=== PATIENT | female | born 1955 | race Native Hawaiian/Other Pacific Islander ===

== ENCOUNTER 2019-01-16 10:24 | Outpatient (CLI) | payer OTHER | END 2019-01-16 22:29 | disposition home or self-care (01) | LOC: MAMMO 10:24 | DX: Z12.31 Encounter for screening mammogram for malignant neoplasm of breast (principal); M89.9 Disorder of bone, unspecified ==

== ENCOUNTER 2019-04-04 14:52 | Outpatient (CLI) | payer OTHER | END 2019-04-04 22:36 | disposition home or self-care (01) | LOC: CT 14:52 | DX: Z87.891 Personal history of nicotine dependence (principal) | CPT/HCPCS: G0297-TC ==

== ENCOUNTER 2019-09-11 11:00 | Inpatient (IN) | payer OTHER | END 2019-09-29 10:14 | disposition still patient (30) | LOC: PAVC 11:00 | PROVIDERS: ADMIT Internal Medicine | CPT/HCPCS: 87635; U0002 ==

== ENCOUNTER 2019-09-12 10:37 | Outpatient (CLI) | payer OTHER ==
[2019-09-12 11:04] LABS: PLATELET COUNT 226 K/uL (152-353)
[2019-09-12 13:31] LABS: POTASSIUM 4.1 mmol/L (3.6-5.2)
== END 2019-09-12 20:25 | disposition home or self-care (01) ==
LOC: LAB 10:37
PROVIDERS: Internal Medicine
DX: G30.0 Alzheimer's disease with early onset (principal)
CPT/HCPCS: 80053; 80061; 82306; 82607; 82728; 83036; 83540; 83880; 84443; 85027

== ENCOUNTER 2019-09-13 01:11 | Outpatient (CLI) | payer OTHER | END 2019-09-13 22:49 | disposition home or self-care (01) | LOC: LAB 01:11 | DX: Z13.9 Encounter for screening, unspecified (principal) | CPT/HCPCS: 87081 ==

== ENCOUNTER 2019-09-29 10:31 | Inpatient (IN) | payer OTHER | END 2019-10-30 14:03 | disposition still patient (30) | LOC: PAVC 10:31 | PROVIDERS: ADMIT Internal Medicine | CPT/HCPCS: 87635; U0002 ==

== ENCOUNTER 2019-10-30 14:43 | Inpatient (IN) | payer OTHER | END 2019-11-29 14:09 | disposition still patient (30) | LOC: PAVC 14:43 | PROVIDERS: ADMIT Internal Medicine ==

== ENCOUNTER 2019-11-29 15:07 | Inpatient (IN) | payer OTHER | END 2019-12-30 08:00 | disposition still patient (30) | LOC: PAVC 15:07 | PROVIDERS: ADMIT Internal Medicine ==

== ENCOUNTER 2019-12-30 09:00 | Inpatient (IN) | payer OTHER | END 2020-01-29 12:25 | disposition still patient (30) | LOC: PAVC 09:00 | PROVIDERS: ADMIT Internal Medicine; ATTEND Internal Medicine ==

== ENCOUNTER 2020-01-29 12:44 | Inpatient (IN) | payer OTHER | END 2020-02-29 09:47 | disposition still patient (30) | LOC: PAVC 12:44 | PROVIDERS: ADMIT Internal Medicine; ATTEND Internal Medicine ==

== ENCOUNTER 2020-02-15 10:06 | Outpatient (CLI) | payer OTHER | END 2020-02-15 19:20 | disposition home or self-care (01) | LOC: RAD 10:06 | PROVIDERS: ATTEND Internal Medicine | DX: M85.88 Other specified disorders of bone density and structure, other site (principal) ==

== ENCOUNTER 2020-02-29 10:04 | Inpatient (IN) | payer OTHER | END 2020-03-31 15:31 | disposition still patient (30) | LOC: PAVC 10:04 | PROVIDERS: ADMIT Internal Medicine; ATTEND Internal Medicine ==

== ENCOUNTER 2020-03-03 09:33 | Outpatient (CLI) | payer OTHER ==
[2020-03-03 09:56] LABS: PLATELET COUNT 201 K/uL (152-353)
[2020-03-03 11:45] LABS: POTASSIUM 3.9 mmol/L (3.6-5.2)
== END 2020-03-03 21:07 | disposition home or self-care (01) ==
LOC: LAB 09:33
PROVIDERS: ATTEND Internal Medicine
DX: G30.0 Alzheimer's disease with early onset (principal); N18.30 Chronic kidney disease, stage 3 unspecified; E55.9 Vitamin D deficiency, unspecified; R06.02 Shortness of breath; I12.9 Hypertensive chronic kidney disease with stage 1 through stage 4 chronic kidney disease, or unspecified chronic kidney disease
CPT/HCPCS: 80053; 82306; 82728; 83540; 83880; 84443; 85027

== ENCOUNTER 2020-03-31 15:42 | Inpatient (IN) | payer OTHER | END 2020-04-28 11:16 | disposition still patient (30) | LOC: PAVC 15:42 | PROVIDERS: ADMIT Internal Medicine; ATTEND Internal Medicine ==

== ENCOUNTER 2020-04-28 11:41 | Inpatient (IN) | payer OTHER | END 2020-05-29 12:22 | disposition still patient (30) | LOC: PAVC 11:41 | PROVIDERS: ADMIT Internal Medicine; ATTEND Internal Medicine ==

== ENCOUNTER 2020-05-29 13:52 | Inpatient (IN) | payer OTHER | END 2020-06-28 11:26 | disposition still patient (30) | LOC: PAVC 13:52 | PROVIDERS: ADMIT Internal Medicine; ATTEND Internal Medicine ==

== ENCOUNTER 2020-06-28 11:46 | Inpatient (IN) | payer OTHER | END 2020-07-29 15:45 | disposition still patient (30) | LOC: PAVC 11:46 | PROVIDERS: ADMIT Internal Medicine; ATTEND Internal Medicine ==

== ENCOUNTER 2020-07-29 16:37 | Inpatient (IN) | payer OTHER | END 2020-08-28 08:00 | disposition still patient (30) | LOC: PAVC 16:37 | PROVIDERS: ADMIT Internal Medicine; ATTEND Internal Medicine ==

== ENCOUNTER 2020-08-28 09:00 | Inpatient (IN) | payer OTHER | END 2020-09-28 08:00 | disposition still patient (30) | LOC: PAVC 09:00 | PROVIDERS: ADMIT Internal Medicine; ATTEND Internal Medicine ==

== ENCOUNTER 2020-09-02 07:49 | Outpatient (CLI) | payer OTHER ==
[2020-09-02 08:40] LABS: POTASSIUM 4.3 mmol/L (3.6-5.2)
[2020-09-02 12:27] LABS: PLATELET COUNT 245 K/uL (152-353)
== END 2020-09-02 19:08 | disposition home or self-care (01) ==
LOC: LAB 07:49
PROVIDERS: ATTEND Internal Medicine
DX: G30.0 Alzheimer's disease with early onset (principal); Z79.899 Other long term (current) drug therapy
CPT/HCPCS: 80053; 80061; 82306; 82728; 83540; 83880; 84443; 85027

== ENCOUNTER 2020-09-28 09:00 | Inpatient (IN) | payer OTHER | END 2020-10-29 13:51 | disposition still patient (30) | LOC: PAVC 09:00 | PROVIDERS: ADMIT Internal Medicine; ATTEND Internal Medicine ==

== ENCOUNTER 2020-10-29 14:22 | Inpatient (IN) | payer OTHER | END 2020-11-28 09:39 | disposition still patient (30) | LOC: PAVC 14:22 | PROVIDERS: ADMIT Internal Medicine; ATTEND Internal Medicine ==

== ENCOUNTER 2021-01-16 13:44 | Outpatient (CLI) | payer OTHER | END 2021-01-16 20:18 | disposition home or self-care (01) | LOC: US 13:44 | PROVIDERS: ATTEND Internal Medicine | DX: Z13.6 Encounter for screening for cardiovascular disorders (principal); E78.49 Other hyperlipidemia; I65.29 Occlusion and stenosis of unspecified carotid artery ==

== ENCOUNTER 2021-01-28 12:48 | Inpatient (IN) | payer OTHER | END 2021-02-28 09:09 | disposition still patient (30) | LOC: PAVC 12:48 | PROVIDERS: ADMIT Internal Medicine; ATTEND Internal Medicine ==

== ENCOUNTER 2021-02-28 09:35 | Inpatient (IN) | payer OTHER | END 2021-03-31 08:59 | disposition still patient (30) | LOC: PAVC 09:35 | PROVIDERS: ADMIT Internal Medicine; ATTEND Internal Medicine ==

== ENCOUNTER 2021-03-02 08:30 | Outpatient (CLI) | payer OTHER ==
[2021-03-02 08:55] LABS: PLATELET COUNT 216 K/uL (152-353)
[2021-03-02 09:26] LABS: POTASSIUM 3.8 mmol/L (3.6-5.2)
== END 2021-03-02 18:49 | disposition home or self-care (01) ==
LOC: LAB 08:30
PROVIDERS: ATTEND Internal Medicine
DX: G30.0 Alzheimer's disease with early onset (principal)
CPT/HCPCS: 80053; 82306; 82728; 83540; 83880; 84443; 85027

== ENCOUNTER 2021-03-31 13:25 | Inpatient (IN) | payer OTHER | END 2021-04-28 09:10 | disposition still patient (30) | LOC: PAVC 13:25 | PROVIDERS: ADMIT Internal Medicine; ATTEND Internal Medicine ==

== ENCOUNTER 2021-04-28 14:18 | Inpatient (IN) | payer OTHER | END 2021-05-29 14:14 | disposition still patient (30) | LOC: PAVC 14:18 | PROVIDERS: ADMIT Internal Medicine; ATTEND Internal Medicine ==

== ENCOUNTER 2021-05-29 15:32 | Inpatient (IN) | payer OTHER | END 2021-06-28 10:41 | disposition still patient (30) | LOC: PAVC 15:32 | PROVIDERS: ADMIT Internal Medicine; ATTEND Internal Medicine ==

== ENCOUNTER 2021-06-28 02:46 | Inpatient (IN) | payer OTHER | END 2021-07-29 10:02 | disposition still patient (30) | LOC: PAVC 02:46 | PROVIDERS: ADMIT Internal Medicine; ATTEND Internal Medicine ==

== ENCOUNTER 2021-07-29 16:19 | Inpatient (IN) | payer OTHER | END 2021-08-28 09:17 | disposition still patient (30) | LOC: PAVC 16:19 | PROVIDERS: ADMIT Internal Medicine; ATTEND Internal Medicine ==

== ENCOUNTER 2021-08-28 06:58 | Outpatient (CLI) | payer OTHER ==
[2021-08-28 08:03] LABS: PLATELET COUNT 237 K/uL (152-353)
== END 2021-08-28 21:13 | disposition home or self-care (01) ==
LOC: LAB 06:58
PROVIDERS: ATTEND Internal Medicine
DX: G30.0 Alzheimer's disease with early onset (principal); Z79.899 Other long term (current) drug therapy; R79.89 Other specified abnormal findings of blood chemistry
CPT/HCPCS: 80053; 80061; 82306; 82728; 83540; 83880; 84443; 85027

== ENCOUNTER 2021-08-28 13:16 | Inpatient (IN) | payer OTHER ==
[2021-09-29] MEDS ORDERED: DONEPEZIL HYDRO10 MG PO (20:50)
[2021-09-29] MEDS ORDERED: ALEN70TA19 PO (20:51)
[2021-09-29] MEDS ORDERED: LIPITOR40 MG PO (20:52)
[2021-09-29] MEDS ORDERED: MAGIC CUP PO (20:54)
[2021-09-29] MEDS ORDERED: MULTIVITAMI1 PO (20:55)
[2021-09-29] MEDS ORDERED: FAMOTIDINE20 MG PO (20:56)
[2021-09-29] MEDS ORDERED: OLANZAPINE10 MG PO (20:57)
[2021-09-29] MEDS ORDERED: ASPIRIN/ENTERIC81 MG PO (20:58)
[2021-09-29] MEDS ORDERED: MEGESTROL400 MG/10 PO (21:00)
[2021-09-29] MEDS ORDERED: METO-837 PO (21:01)
[2021-09-29] MEDS ORDERED: MEMANTINE HYDRO10 MG PO (21:02)
[2021-09-29] MEDS ORDERED: TYLENOL325 MG PO (21:03)
[2021-09-29] MEDS ORDERED: ALPR0.5T24 PO (21:05)
== END 2021-09-28 09:12 | disposition still patient (30) ==
LOC: PAVC 13:16
PROVIDERS: ADMIT Internal Medicine; ATTEND Internal Medicine

== ENCOUNTER 2021-09-11 05:26 | Outpatient (CLI) | payer OTHER | END 2021-09-11 20:49 | disposition home or self-care (01) | LOC: LAB 05:26 | PROVIDERS: ATTEND Internal Medicine | DX: N18.30 Chronic kidney disease, stage 3 unspecified (principal) | CPT/HCPCS: 82607 ==

== ENCOUNTER 2021-09-29 12:52 | Emergency (ER) | payer OTHER ==
[~2021-09-29] VITALS: Ht 165.1 cm; Wt 63.5 kg
[2021-09-29 12:55] VITALS: BP 155/68; TEMP 98.6
[2021-09-29 13:17] LABS: PLATELET COUNT 287 K/uL (152-353)
[2021-09-29 13:27] LABS: POTASSIUM 3.4 mmol/L (3.6-5.2)
[2021-09-29] MEDS ORDERED: DONEPEZIL HYDRO10 MG PO (20:50)
[2021-09-29] MEDS ORDERED: ALEN70TA19 PO (20:51)
[2021-09-29] MEDS ORDERED: LIPITOR40 MG PO (20:52)
[2021-09-29] MEDS ORDERED: MAGIC CUP PO (20:54)
[2021-09-29] MEDS ORDERED: MULTIVITAMI1 PO (20:55)
[2021-09-29] MEDS ORDERED: FAMOTIDINE20 MG PO (20:56)
[2021-09-29] MEDS ORDERED: OLANZAPINE10 MG PO (20:57)
[2021-09-29] MEDS ORDERED: ASPIRIN/ENTERIC81 MG PO (20:58)
[2021-09-29] MEDS ORDERED: MEGESTROL400 MG/10 PO (21:00)
[2021-09-29] MEDS ORDERED: METO-837 PO (21:01)
[2021-09-29] MEDS ORDERED: MEMANTINE HYDRO10 MG PO (21:02)
[2021-09-29] MEDS ORDERED: TYLENOL325 MG PO (21:03)
[2021-09-29] MEDS ORDERED: ALPR0.5T24 PO (21:05)
== END 2021-09-29 14:34 | disposition still patient (30) ==
LOC: ED 12:52
PROVIDERS: Emergency Medicine
DX: G30.8 Other Alzheimer's disease (principal); F02.81 Dementia in other diseases classified elsewhere, unspecified severity, with behavioral disturbance; R45.1 Restlessness and agitation; Z91.83 Wandering in diseases classified elsewhere; Z11.52 Encounter for screening for COVID-19; Z04.6 Encounter for general psychiatric examination, requested by authority
CPT/HCPCS: 80053; 85027; 87635; 99283; U0003

== ENCOUNTER 2022-04-09 17:06 | Emergency (ER) | payer OTHER ==
[~2022-04-09] VITALS: Ht 160 cm; Wt 52.6 kg
[~2022-04-09 17:06] MED LIST: ACET-206 PO; ALEN70TA19 PO; ALPR0.5T24 PO; ASPIRIN/ENTERIC81 MG PO; ATOR20TA2 PO; BLOOMIS59 PO; DONE5TAB PO; DONEPEZIL HYDRO10 MG PO; FAMOTIDINE20 MG PO; LEVOFLOXACIN500 MG PO; LIPITOR40 MG PO; LORA0.5T17 PO; MAGIC CUP PO; MAGNSUS68 PO; MEGE40TA32 PO; MEGESTROL400 MG/10 PO; MEMA10TA2 PO; MEMANTINE HYDRO10 MG PO; METO-837 PO; MULTIVITAMI1 PO; MULTTAB52 PO; OLAN2.5T2 PO; OLANZAPINE10 MG PO; SB ASPIRIN325 M1 PO; TYLENOL325 MG PO
[2022-04-09 17:27] LABS: PLATELET COUNT 265 K/uL (152-353)
[2022-04-09 17:28] LABS: POTASSIUM 3.6 mmol/L (3.6-5.2)
[2022-04-09] MEDS ORDERED: [UNRECOGNIZED DRUG - OTHER] PO (19:26)
[2022-04-09] MEDS ORDERED: LORA0.5T17 PO (19:26)
[2022-04-09] MEDS ORDERED: RISP0.25 PO (19:28)
[2022-04-09] MEDS ORDERED: MILK OF MA400 MG/5 M PO (19:30)
== END 2022-04-09 18:20 | disposition still patient (30) ==
LOC: ED 17:06
PROVIDERS: Emergency Medicine
DX: F03.911 Unspecified dementia, unspecified severity, with agitation (principal); Z11.52 Encounter for screening for COVID-19; Z04.6 Encounter for general psychiatric examination, requested by authority
CPT/HCPCS: 80053; 85027; 87635; 93005; 99283; U0003